=== PATIENT | female | born 1945 | race Caucasian/White ===

== ENCOUNTER 2023-02-22 13:30 | Emergency (ER) | payer MEDICARE, SELFPAY ==
--- NOTE | 2023-02-22 13:33 | ED.URI ---
HPI - URI/Sore Throat General Chief Complaint: Upper Respiratory Infection Stated Complaint: cough,congestion Time Seen by Provider: 02/22/23 13:32 Source: patient Mode of arrival: ambulatory Limitations: no limitations History of Present Illness HPI Narrative: Renetta is a 77-year-old female patient presenting to the clinic today with complaints coughing and congestion x4 weeks. She reports she was seen by her healthcare provider and prescribed doxycycline and a Medrol Dosepak over 2 weeks ago. States she has recently traveled from [place] to [place] to visit her sister and was worried that she was going to make her sister sick. Has finished the meds over 1 week ago and has felt as though the doxycycline did not do anything for her. States that the Medrol Dosepak did help some. She denies any fever but has had some chills and body aches. Has yellow nasal drainage and a productive cough with yellow phlegm. MD elicited complaint: sore throat and nasal congestion Related Data Home Medications Medication Instructions Recorded Confirmed conjugated estrogens 0.625 mg/gram 0.625 mg vaginal 2XW 02/22/23 02/22/23 vaginal cream (Premarin) paroxetine HCl 20 mg tablet 5 mg PO DAILY 02/22/23 02/22/23 raloxifene 60 mg tablet 60 mg PO 4XW 02/22/23 02/22/23 Allergies Allergy/AdvReac Type Severity Reaction Status Date / Time alendronate sodium Allergy Joint Pain Verified 02/22/23 13:41 [From Fosamax] Review of Systems Review of Systems: Pertinent positives per HPI. Patient denies any fever, rash, headache, visual changes, dizziness, shortness of breath, chest pain, palpitations, nausea, vomiting, diarrhea, constipation, abdominal pain, or any urinary issues. PMFSH Comments At the time of my signature, I reviewed and agree with the nursing past medical, surgical, social, and family history. There is no relevant family history pertinent to the patient complaint. Exam Narrative: General: Well-developed, well nourished, in no apparent distress Head: Normocephalic, atraumatic Eyes: Pupils equally round and reactive to light bilaterally, EOM intact, sclera and conjunctive clear, no discharge, lids normal Ears: TMs intact and congested, ear canals clear, no drainage, grossly hearing normal. Nose: Nares patent, yellow nasal discharge, severe inflammation, maxillary and frontal sinus tenderness. Mouth: Oral pharynx without lesions or masses, good dentition, MMM.PND Neck: Supple, trachea midline, no enlargement of anterior or posterior cervical nodes, no thyroid masses or goiter palpable. Cardio: Regular rate and rhythm, s1 and s2 normal, no murmur appreciated. Resp: Clear to auscultation bilaterally, no rhonchi, rales, wheezing or rubs Course Course Emergency Course: Portions of this record may have been created with voice recognition software. Level of Care: Express Care Visit Vital Signs Vital signs: Vital signs reviewed MDM - URI/Sore Throat MDM Narrative Medical decision making narrative: At the time of visit patient is resting comfortably on the exam table. I suspect patient has acute bacterial rhinosinusitis. Prescription for Augmentin and prednisone was sent to the pharmacy and supportive measures were discussed with the patient she voiced understanding of discharge instructions and agrees to treatment plan. Will send in prescription for Diflucan as patient does have history of vaginal yeast infections when taking antibiotics. Differential Diagnosis Differential diagnosis: Likely upper respiratory infection, otitis media, sinusitis, viral infection, bronchitis, influenza, pharyngitis and other (COVID) Discharge Plan Discharge Clinical Impression: Acute bacterial rhinosinusitis Patient Disposition: Home, Self-Care Condition: Stable Instructions: Antibiotic Form, Rhinosinusitis (ED) Additional Instructions: Take prescription medications only as prescribed-prednisone, Diflucan, and Augmentin
[2023-02-22 13:41] VITALS: BP 141/85; PULSE 78; RESP 16; TEMP 36; O2SAT 99
[2023-02-22 13:44] VITALS: BP 141/85; PULSE 78; RESP 16; TEMP 36; O2SAT 99
== END 2023-02-22 14:02 | disposition home or self-care (01) ==
LOC: EXPGOSH 13:34
PROVIDERS: Emergency Provider Nurse Practitioner Family
DX: J01.90 Acute sinusitis, unspecified (principal); M85.80 Other specified disorders of bone density and structure, unspecified site
CPT/HCPCS: 99213; G0463